=== PATIENT | female | born 1975 | race Caucasian/White ===

== ENCOUNTER 2022-05-11 01:04 | Emergency (ER) | payer MEDICAID, OTHER ==
[~2022-05-11] VITALS: Ht 172.7 cm; Wt 93.4 kg
[2022-05-11] MEDS ORDERED: LIDOCAINE HCL 1% 20 ML VIAL ONE (01:24)
[2022-05-11] MEDS ORDERED: TDAP DIPH,PERTUSS,TET VAC/PF 0.5 ML DISP.SYRIN IM ONE ×2 (01:25→01:30)
[2022-05-11] MEDS ORDERED: LIDOCAINE HCL 2% 20 ML VIAL IJ ONE (01:30)
[2022-05-11] MEDS ORDERED: LIDOCAINE HCL 2% 20 ML VIAL ONE (01:32)
[2022-05-11] MEDS ORDERED: OXYC-128 PO (01:54)
[2022-05-11 02:03] VITALS: BP 130/78
--- NOTE | 2022-05-11 02:03 | NUR ---
Patient discharged to home in stable condition. Written and verbal after care instructions given. Patient verbalizes understanding of instructions. Stressed follow up or return to ER for worsening s/s.
== END 2022-05-11 02:03 | disposition home or self-care (01) ==
LOC: ER 01:04
DX: S61.412A Laceration without foreign body of left hand, initial encounter (principal); W25.XXXA Contact with sharp glass, initial encounter; Y92.89 Other specified places as the place of occurrence of the external cause; J45.909 Unspecified asthma, uncomplicated; Z87.74 Personal history of (corrected) congenital malformations of heart and circulatory system; Z95.0 Presence of cardiac pacemaker
CPT/HCPCS: 99283; 90715; 90471; J3490; A4663